=== PATIENT | male | born 1975 | race Caucasian/White ===

== ENCOUNTER 2019-10-14 14:52 | Emergency (ER) | payer OTHER ==
[~2019-10-14] VITALS: Ht 180.3 cm; Wt 86.2 kg
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
[2019-10-14] MEDS ORDERED: IBUPROFEN 600 MG TABLET PO ONE ×2 (15:18→15:30)
--- NOTE | 2019-10-14 15:20 | NUR ---
XRAY AT BEDSIDE
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
[2019-10-14 16:44] VITALS: BP 132/86
== END 2019-10-14 16:44 | disposition home or self-care (01) ==
LOC: ER 14:58
DX: S50.12XA Contusion of left forearm, initial encounter (principal); Y08.89XA Assault by other specified means, initial encounter; Y93.89 Activity, other specified; Y92.89 Other specified places as the place of occurrence of the external cause; Y99.8 Other external cause status
CPT/HCPCS: 73090-TC

== ENCOUNTER 2021-09-17 15:53 | Inpatient (IN) | payer MEDICAID, OTHER ==
[~2021-09-17] VITALS: Ht 177.8 cm; Wt 86.2 kg
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
--- NOTE | 2021-09-17 16:20 | NUR ---
DR AL MADE AWARE OF OXYGEN SATURATION LEVEL OF 55 % IN ROOM AIR. THE PATIENT IS PLACED ON OXYGEN AT 15L/MIN VIA NON-REBREATHER MASK AND MADE DR AL AWARE. THE SATURATION LEVEL WITH 15L/MIN VIA NON-REBREATHER MASK IMPORVED TO 92%. WILL CONTINUE TO MONITOR THE PATIENT.
[2021-09-17] MEDS ORDERED: NALOXONE HCL 0.4 MG/ML AMPUL IV ONE (16:30)
[2021-09-17] MEDS ORDERED: NALOXONE PREFILLED SYRINGE 2 MG/2 ML SYRINGE ONE (16:31)
[2021-09-17 16:34] LABS: BASOPHILS % (AUTO) 0.2 % (0.0-2.0); EOSINOPHILS % (AUTO) 0.4 % (0.0-6.0); HEMATOCRIT 42 % (39-51); HEMOGLOBIN 13.7 g/dL (13.5-17.5); LYMPHOCYTES # (AUTO) 0.8 K/uL (0.8-4.8); LYMPHOCYTES % (AUTO) 5.5 % (20.0-44.0); MEAN CORPUSCULAR HGB CONC 33 g/dl (31.0-36.0); MEAN CORPUSCULAR VOLUME 92 fL (80-96); MONOCYTES # (AUTO) 0.4 K/uL (0.1-1.30); MONOCYTES % (AUTO) 2.7 % (2.0-12.0); NEUTROPHILS # (AUTO) 12.8 K/uL (1.8-8.9); NEUTROPHILS % (AUTO) 91.2 % (43.0-81.0); PLATELET COUNT (AUTO) 408 K/uL (150-450); RED BLOOD CELL COUNT(AUTO) 4.53 MIL/uL (4.5-6.0)
[2021-09-17 16:47] LABS: ALANINE AMINOTRANSFERASE 41 U/L (12-78); ALBUMIN 2.8 g/dL (3.4-5.0); ALKALINE PHOSPHATASE 52 U/L (46-116); ASPARTATE AMINOTRANSFERASE 37 U/L (15-37); BILIRUBIN,DIRECT 0.1 mg/dL (0.0-0.2); BILIRUBIN,TOTAL 0.4 mg/dL (0.2-1.0); CALCIUM, SERUM 8.3 mg/dL (8.5-10.1); CARBON DIOXIDE 26 mmol/L (21-32); CHLORIDE 103 mmol/L (98-107); CREATININE 1.8 mg/dL (0.6-1.3); GLUCOSE 164 mg/dL (74-106); POTASSIUM 3.9 mmol/L (3.5-5.1); SODIUM SERUM 138 mmol/L (136-145); TOTAL PROTEIN, SERUM 7.1 g/dL (6.4-8.2); UREA NITROGEN, BLOOD 17 mg/dL (7-18)
[2021-09-17 16:48] LABS: ACETAMINOPHEN < 0 ug/ml (10-30); ALCOHOL, BLOOD < 3 mg/dL (0-0)
--- NOTE | 2021-09-17 17:11 | NUR ---
RT NOTE PLACED PT ON HIGH FLOW NASAL CANNULA 60L, 100% PER MD ORDER. MONITORING PATIENT CLOSELY FOR ANY CHANGES. RN NOTIFIED AND AWARE.
[2021-09-17 17:29] LABS: BILIRUBIN,URINE NEGATIVE (NEGATIVE); COLOR,URINE YELLOW (YELLOW); LEUKOCYTE ESTERASE ,URINE NEGATIVE (NEGATIVE); NITRITE, URINE NEGATIVE (NEGATIVE); PH,URINE 6.5 (5.0-8.0); PROTEIN,URINE 100 mg/dl (NEGATIVE); UGLUCOSE 250 MG/DL mg/dL (NEGATIVE); UROBILINOGEN,URINE 0.2 EU/dL (0.2)
[2021-09-17] MEDS ORDERED: PIPERACILLIN /TAZOBACTAM 3.375 G in IV D5W 50 ML IV ONE (17:30)
[2021-09-17 17:41] LABS: BACTERIA,URINE Few /HPF (None Seen); RBC,URINE 0-2 /HPF (0-2); SPERM,URINE Few /HPF (None Seen); SQUAMOUS EPITHELIAL CELL,UR Rare /HPF (None Seen); WBC,URINE 0-2 /HPF (0-3)
[2021-09-17 17:59] LABS: ABG BASE EXCESS 0.4 mmol/L; ABG PCO2 51.8 mmHg (35.0-45.0); ABG PH 7.338 (7.350-7.450); ABG PO2 88.3 mmHg (75.0-100.0); COHb 0.5 % (0.5-1.5); MetHb 0.4 % (0.0-1.5); O2Hb 95.4 % (94.0-97.0); SITE, ABG Right Radial
--- NOTE | 2021-09-17 18:00 | NUR ---
RT NOTE POST ABG RESULTS SHOWN TO DR. AL. NO CHANGES AT THIS TIME. WILL CONTINUE TO MONITOR THE PATIENT CLOSELY. SPO2 98%. RN AWARE.
[2021-09-17] MEDS ORDERED: Z GUARD REMEDY 4 OZ OINT TP PRN (19:00)
[2021-09-17] MEDS ORDERED: ACETAMINOPHEN 325 MG TABLET PO PRN (19:00)
[2021-09-17] MEDS ORDERED: ONDANSETRON HCL/PF 4 MG/2 ML VIAL IVP PRN (19:00)
[2021-09-17] MEDS ORDERED: MAGNESIUM HYDROXIDE 30 ML UDC PO PRN (19:00)
[2021-09-17] MEDS ORDERED: MAG HYDROX/AL HYDROX/SIMETH 30 ML UDC PO PRN (19:00)
--- NOTE | 2021-09-17 19:20 | NUR ---
RECEIVED PATIENT AWAKE, ORIENTED X4. HE CANNOT RECALL WHAT HAPPENED TO HIM EARLIER. HE WANTS TO GO OUT. EXPLAINED TO HIM THE SEVERITY OF HIS CONDITION AT THE MOMENT. THEN HE DECIDED TO STAY. VITALS CHECKED.
--- NOTE | 2021-09-17 19:43 | NUR ---
ROOM 256 ICU
--- NOTE | 2021-09-17 19:48 | NUR ---
Isaac ruffin in ED - 09/17/21 at 1950 by ORQUIDEA RECEIVED PATIENT AWAKE, ALERT, ORIENTED. WITH ONGOING DOPPLER POOJA OF LOWER LEG.
--- NOTE | 2021-09-17 19:49 | NUR ---
Isaac ruffin in ED - 09/17/21 at 1949 by ORQUIDEA Patient discharged to home in stable condition. Written and verbal after care instructions given. Patient verbalizes understanding of instruction.
--- NOTE | 2021-09-17 20:00 | NUR ---
ABG DONE AT BEDSIDE.
[2021-09-17 20:05] LABS: ABG BASE EXCESS -2.3 mmol/L; ABG PCO2 49.4 mmHg (35.0-45.0); ABG PH 7.312 (7.350-7.450); ABG PO2 114.3 mmHg (75.0-100.0); COHb 0.6 % (0.5-1.5); MetHb 0.5 % (0.0-1.5); O2Hb 96.8 % (94.0-97.0); SITE, ABG Left Radial
--- NOTE | 2021-09-17 20:08 | NUR ---
REPORT GIVEN TO SOL FERRARA.
--- NOTE | 2021-09-17 20:34 | NUR ---
TRANSFER PATIENT TO 256-1
[2021-09-17] MEDS: PANTOPRAZOLE 40 MG VIAL IV SCH (20:38)
[2021-09-17] MEDS: ENOXAPARIN SODIUM 40 MG/0.4 ML DISP.SYRIN SQ SCH (20:38)
[2021-09-17] MEDS: IV NS 0.9% 1,000 ML IV PRN (20:39)
--- NOTE | 2021-09-17 20:53 | NUR ---
RN NOTE RECEIVED A 46 YEAR OLD MALE FROM ER. PATIENT ARRIVED VIA GURNEY. PATIENT ALERT AND ORIENTED X4. ABLE TO MAKE NEEDS KNOWN. ARRIVE WITH NRB AT 15L/MIN, SWITCHED TO HIGH FLOW NC AT 60L/MIN AND 60 PERCENT FIO2. TOLERATING WELL WITH O2 SATURATION OF 100 PERCENT WITH GOOD WAVEFORM VIA BEDSIDE MONITOR. PATIENT DENIES FEELING SOB AT THIS TIME. ON TELE MONITORING. PATIENT DENIES CHEST PAIN. SKIN IS WARM AND DRY TO TOUCH. LEFT AND RIGHT HAND 2OG, AND RIGHT FOREARM 18G. INTACT. DENIES N/V. SKIN ASSESSMENT DONE. PICTURES FILED IN CHART. PATIENT STATES HE CAN CONTROL BOTH HIS BOWEL AND BLADDER. PROVIDED WITH URINAL. ALL NEEDS ATTENDED. BED LOW, IN LOCKED POSITION, CALL LIGHT WITHIN REACH.
[2021-09-17] MEDS ORDERED: CEFEPIME 1 GM in IV D5W 50 ML IV SCH ×4 (21:00)
[2021-09-17] MEDS ORDERED: CEFEPIME 1 GM VIAL ONE (21:44)
[2021-09-17 22:00] VITALS: BP 118/72
[2021-09-17 23:00] VITALS: BP 144/74
[2021-09-17 23:30] VITALS: BP 117/74
[2021-09-18] VITALS (17 sets, daily range): BP systolic 111–135; BP diastolic 59–86
--- NOTE | 2021-09-18 04:55 | NUR ---
RT Notes Pt received on High Flow nasal cannula on flow 60LPM and FIO2 of 100% and titrated down throughout shift to flow 50LPM and FIO2 50%. No SOB/distress noted throughout shift. [place] at bedside. Will cont to monitor.
[2021-09-18 05:53] LABS: BASOPHILS # (AUTO) 0.1 K/uL (0.0-0.2); BASOPHILS % (AUTO) 0.5 % (0.0-2.0); EOSINOPHILS % (AUTO) 0.1 % (0.0-6.0); HEMATOCRIT 40 % (39-51); HEMOGLOBIN 13.2 g/dL (13.5-17.5); LYMPHOCYTES # (AUTO) 1.3 K/uL (0.8-4.8); LYMPHOCYTES % (AUTO) 7.6 % (20.0-44.0); MEAN CORPUSCULAR HGB CONC 33 g/dl (31.0-36.0); MEAN CORPUSCULAR VOLUME 92 fL (80-96); MONOCYTES # (AUTO) 0.7 K/uL (0.1-1.30); MONOCYTES % (AUTO) 3.9 % (2.0-12.0); NEUTROPHILS # (AUTO) 15.1 K/uL (1.8-8.9); NEUTROPHILS % (AUTO) 87.9 % (43.0-81.0); PLATELET COUNT (AUTO) 393 K/uL (150-450); RED BLOOD CELL COUNT(AUTO) 4.31 MIL/uL (4.5-6.0); WHITE BLOOD COUNT (AUTO) 17.1 K/uL (4.3-11.0)
[2021-09-18 06:10] LABS: CALCIUM, SERUM 8.2 mg/dL (8.5-10.1); CREATININE 1.5 mg/dL (0.6-1.3); MAGNESIUM 2.1 mg/dL (1.8-2.4); PHOSPHORUS 4.3 mg/dL (2.5-4.9); POTASSIUM 4.6 mmol/L (3.5-5.1)
--- NOTE | 2021-09-18 07:30 | NUR ---
RN NOTES PT FOUND SEMI FOWLERS, SLEEPING (AUDIBLY SNORING) DISPLAYING NO S/S OF DISTRESS, FLACC = 0 AND BREATHING IS EVEN AND UNLABORED ON 5L O2 NC. R FA 18G IS PATIENT AND INTACT. RN WILL CONTINUE CARE PLAN AND ANTICIPATE NEEDS. SAFETY MEASURES IN PLACE, BED LOCKED AND IN LOWEST POSITION, SIDE RAILS UPX2, CALL LIGHT WITHIN REACH, BED ALARM ARMED.
[2021-09-18] MEDS: PANTOPRAZOLE 40 MG VIAL IV SCH (08:05)
[2021-09-18] MEDS: CEFEPIME 2 GM in IV D5W 100 ML IV SCH ×2 (08:06→21:15)
--- NOTE | 2021-09-18 08:55 | NUR ---
MD VISIT DR EDEN VISITED PT, PERFORMED ASSESSMENT, ASKED QUESTIONS. MD GAVE ORDERS: REGULAR DIET. RN ACKNOWLEDGED AND WILL ENTER ORDERS.
--- NOTE | 2021-09-18 10:40 | NUR ---
TRANSFER PT DOWNGRADED TO TELE, PT IS A&OX4, BREATHING EVEN AND UNLABORED ON 4L O2 NC. PT CURRENTLY ENDORSES NO PAIN. PT TRANSPORTED W/ SOL ARCHIBALD WHILE ON PORTABLE BEDSIDE MONITOR. VS WERE WNL. SBAR AND REPORT GIVEN TO SOL TEE. CHART DELIVERED TO ADVERTISING COPY WRITER. BELONGINGS REVIEWED AND BROUGHT. PT PLACED ON TELE MONITOR BY PRIMARY RN. PT ENDORSED IN STABLE CONDITION FOR DAVE.
--- NOTE | 2021-09-18 11:00 | NUR ---
telemarketing sales representative note received patient from icu alert oriented on tele monitor sr , on ivf as ordered on 5l nc no sob noted at this time, bed in lowest and locked position , call light within reach
[2021-09-18] MEDS: VANCOMYCIN HCL 0.75 GM in IV D5W 250 ML IV SCH ×2 (11:24→21:58)
--- NOTE | 2021-09-18 14:30 | NUR ---
FAMILY SERVICE WORKER NOTE ROUNDS MADE FAMILY AT BEDSIDE ,NO SOB NOTED, NOT IN DISTRESS
[2021-09-18] MEDS: IV NS 0.9% 1,000 ML IV PRN (17:11)
--- NOTE | 2021-09-18 17:19 | NUR ---
ADVERTISING SALES MANAGER NOTE RESTING COMFORTABLY, ON IVF ORDERED, KEEP CLEAN DRY, NOT IN DISTRESS
--- NOTE | 2021-09-18 18:26 | NUR ---
RN CLOSING NOTE PATIENT IS ALERT AND ORIENTEDX4. PATIENT IN SEMI FOWLERS POSITION. PATIENT SHOWS NO SIGNS OR SYMPTOMS OF PAIN OR DISTRESS. PATIENT OXYGEN SATURATION 96% VIA NASAL CANNULA. SAFETY MEASURES IN PLACE, BED LOCKED AND IN LOWEST POSITION, SIDE RAILS X2, CALL LIGHT WITHIN REACH.
[2021-09-18] MEDS: ENOXAPARIN SODIUM 40 MG/0.4 ML DISP.SYRIN SQ SCH (21:17)
--- NOTE | 2021-09-18 23:15 | NUR ---
certified master safecracker Opening Note Pt received in bed, awake and watching TV, A&O x4, calm, cooperative. Pt is on 5L NC with current O2sat of 98%; pt shows no s/s of resp distress, no SOB or cough, non-labored and equal breathing; pt appears comfortable overall. Pt attached to external monitor SR with HR of 73. IV access noted to be on right hand 20G with NS at 75 ml/hr; IV is intact and patent, flushes easily with no resistance. Will monitor pt for any s/s of drug withdrawal. Bed in lowest position, call light within reach, side rails up x2. Will continue to monitor throughout the night.
[2021-09-19] VITALS: BP 126/71
--- NOTE | 2021-09-19 01:02 | NUR ---
RN Note Pt noted to have temperature of 100.1. Pt administered Tylenol 650 mg. Will monitor for effectiveness.
[2021-09-19 04:00] VITALS: BP 115/73
[2021-09-19] MEDS: IV NS 0.9% 1,000 ML IV PRN (04:40)
--- NOTE | 2021-09-19 06:37 | NUR ---
RESP THER CLOSING NOTE PT IN BED ASLEEP, BUT EASILY AROUSABLE, A&OX4, CALM, COOPERATIVE; SLEPT WELL DURING THE NIGHT. PT REMAINS ON 5L NC WITH O2SAT RANGING FROM 90%-100% LAST NIGHT WITH NO S/S OF RESP DISTRESS, NON-LABORED AND EQUAL BREATHING, NO SOB. ATTACHED TO EXTERNAL MONITOR, SR DURING THE NIGHT WITH HR RANGING FROM 73-82. PT'S IV ACCESS RFA 18G, LEFT AND RIGHT HAND 20G, INTACT AND PATENT. RIGHT HAND HAS NS RUNNING AT 75 ML/HR. ALL DUE MEDS AND FLUIDS ADMINISTERED DURING THE NIGHT. BED IN LOWEST POSITION, CALL LIGHT WITHIN REACH, SIDE RAILS UP X2. WILL ENDORSE TO DAYSHIFT NURSE TO CONTINUE CARE.
--- NOTE | 2021-09-19 07:33 | NUR ---
PRODUCTION COOK OPENING NOTE PATIENT IN BED ASLEEP, BUT EASILY AROUSABLE, ALERT AND ORIENTED X4, CALM, COOPERATIVE; SLEPT WELL DURING THE NIGHT. PATIENT REMAINS ON 5L NC WITH O2SAT RANGING FROM 90%-100% WITH NO SIGNS OR SYMPTOMS OF RESPIRATORY DISTRESS, NON-LABORED AND EQUAL BREATHING, NO SHORTNESS OF BREATH. ATTACHED TO EXTERNAL MONITOR, READING SINUS RHYTHM RANGING FROM 73-82 BEATS PER MINUTE. IV ACCESS NOTED ON RIGHT FOREARM 18 GAUGE, AND LEFT AND RIGHT HANDS 20 GAUGE, INTACT AND PATENT. RIGHT HAND RUNNING NORMAL SALINE AT 75 ML/HR. BED IN LOWEST POSITION, CALL LIGHT WITHIN REACH, SIDE RAILS UP X2. WILL CONTINUE PLAN OF CARE AND ANTICIPATE NEEDS.
[2021-09-19 08:00] VITALS: BP 130/61
[2021-09-19] MEDS: PANTOPRAZOLE 40 MG VIAL IV SCH (09:50)
[2021-09-19] MEDS: CEFEPIME 2 GM in IV D5W 100 ML IV SCH (09:50)
[2021-09-19] MEDS: VANCOMYCIN HCL 0.75 GM in IV D5W 250 ML IV SCH (10:28)
--- NOTE | 2021-09-19 10:57 | NUR ---
RN NOTE PATIENT REFUSING BLOOD DRAW FOR LABORATORY. PER SAFETY RISK LEAD, "WE WILL GIVE HIM SOME TIME BEFORE WE ASK TO TAKE BLOOD AGAIN."WILL CONTINUE PLAN OF CARE AND ANTICIPATE NEEDS.
[2021-09-19 12:00] VITALS: BP 136/76
--- NOTE | 2021-09-19 12:34 | NUR ---
RN NOTE PATIENT HAS DECIDED TO LEAVE THE HOSPITAL AGAINST MEDICAL ADVICE. EXPLAINED TO THE PATIENT THE RISKS OF ENDING TREATMENT EARLY. PATIENT SAID HE "DOES NOT HAVE TIME" TO GET TREATMENT AND HAS "WORK EARLY IN THE MORNING." PATIENT SIGNED AMA FORM, ALL BELONGINGS ACCOUNTED FOR. IV ACCESS ON RIGHT AND LEFT HANDS AND RIGHT FOREARM HAVE ALL BEEN DISCONTINUED, NO BLEEDING. VITAL SIGNS AT 1200 HOURS WERE FOLLOWS TEMPERATURE: 98.6 DEGREES FARENHEIT HEART RATE: 79 BEATS PER MINUTE RESPIRATORY RATE: 18 BREATHS PER MINUTE O2 SATURATION: 99% BLOOD PRESSURE: 136/76 PAIN SCALE: 0/10 PATIENT WAS WHEELED TO THE FRONT LOBBY WHERE HE LEFT THE FACILITY SAFELY IN A PRIVATE VEHICLE.
== END 2021-09-19 12:48 | disposition left against medical advice (07) | DRG 812 ==
LOC: ER 15:55 → TRANSITION 19:35 → ICU 19:51 → TELE1 09-18 10:42 → MEDSG1 09-19 12:09
PROVIDERS: ADMIT Nurse Practitioner Acute Care
DX: T40.411A Poisoning by fentanyl or fentanyl analogs, accidental (unintentional), initial encounter (principal); N17.0 Acute kidney failure with tubular necrosis; J69.0 Pneumonitis due to inhalation of food and vomit; G92.8 Other toxic encephalopathy; A41.9 Sepsis, unspecified organism; J96.01 Acute respiratory failure with hypoxia; J96.02 Acute respiratory failure with hypercapnia; T43.621A Poisoning by amphetamines, accidental (unintentional), initial encounter; Z20.822 Contact with and (suspected) exposure to COVID-19; F41.9 Anxiety disorder, unspecified; F32.A Depression, unspecified; D72.829 Elevated white blood cell count, unspecified; Y92.099 Unspecified place in other non-institutional residence as the place of occurrence of the external cause; F29 Unspecified psychosis not due to a substance or known physiological condition; F17.200 Nicotine dependence, unspecified, uncomplicated; L03.113 Cellulitis of right upper limb
CPT/HCPCS: 36415; 36600; 71045-TC; 80048-TC; 80076-TC; 81001; 82803-TC; 83605-TC; 83735-TC; 83880; 84100-TC; 84484-TC; 85025-TC; 87040-TC; 87081-TC; 94799-TC; C9113; C9803; G0378; G0480; J0692; J1650; J2310; J2405; J2543; J3370; J7030; J7060